=== PATIENT | male | born 1955 | race Caucasian/White ===

== ENCOUNTER 2019-03-19 11:01 | Emergency (ER) | payer SELFPAY ==
[~2019-03-19] VITALS: Ht 170.2 cm; Wt 63.5 kg
[2019-03-19] MEDS ORDERED: cefTRIAXone SOD 1,000 MG VL IM ONE (12:30)
[2019-03-19 13:52] VITALS: BP 118/68
== END 2019-03-19 15:48 | disposition left against medical advice (07) ==
LOC: ER 11:04
DX: J02.9 Acute pharyngitis, unspecified (principal); M54.2 Cervicalgia; Z53.21 Procedure and treatment not carried out due to patient leaving prior to being seen by health care provider
CPT/HCPCS: 70490

== ENCOUNTER 2019-05-18 21:16 | Inpatient (IN) | payer SELFPAY ==
[~2019-05-18] VITALS: Ht 162.6 cm; Wt 45.4 kg
[2019-05-18 22:18] LABS: Red Blood Cells 2.33 10^6/uL (4.5-5.90); Red Cell Distribution Width 15.6 % (11.8-14.3)
[2019-05-18 22:21] LABS: Hematocrit 22.7 % (41.0-53.0); Hemoglobin 7.3 g/dL (13.5-17.5); Mean Corpuscular Hemoglobin 31.3 pg (28.0-32.0); Mean Corpuscular Hgb Conc. 32.1 g/dL (32.0-36.0); Mean Corpuscular Volume 97.5 fL (80.0-100.0); Platelet Count (auto) 310 10^3/uL (140-450)
[2019-05-18] MEDS ORDERED: SODIUM CHLORIDE 0.9% 1,000 ML IV ONE ×2 (22:30)
[2019-05-18 22:31] LABS: White Blood Cell 36.9 10^3/uL (4.4-10.8)
[2019-05-18 22:33] LABS: Basophils % (manual) 0 (0.0-2.0); Blast Cells 0; Eosinophils % (manual) 0 (0-7); Metamyelocytes % 0; Myelocytes % 0; Promyelocytes % 0; Reactive Lymphocytes 0
[2019-05-18 22:39] LABS: Calcium 8.6 mg/dL (8.5-10.1); Potassium 4.4 mmol/L (3.5-5.1)
[2019-05-18 22:41] LABS: Bilirubin, Total 0.2 mg/dL (0.2-1.0); Total Protein 5.3 g/dL (6.4-8.2)
[2019-05-18 22:47] LABS: Band Neutrophils % (manual) 14; Lymphocytes % (manual) 3 (10.0-50.0); Monocytes % (manual) 3 (0-12)
[2019-05-18 23:17] LABS: Amylase 108 U/L (25-115); Blood Alcohol < 3.0 mg/dL (0-5); INR 1.68 (0.9-1.15); Magnesium 2.1 mg/dL (1.6-2.6); Partial Thromboplastin Time 24.8 sec (23.64-32.05)
[2019-05-18 23:27] LABS: Lactic Acid w/Reflex 3.5 mmol/L (0.4-2.0)
[2019-05-18] MEDS ORDERED: VANCOMYCIN 1GM/250ML 250 ML IV ONE (23:45)
[2019-05-18] MEDS ORDERED: PIPERACILLIN-TAZOB 3.375GM 100 ML IV ONE (23:45)
[2019-05-18 23:53] LABS: Urine Bacteria FEW /hpf (None Seen); Urine Blood Negative /uL (Negative); Urine Hyaline Cast MOD /lpf (0 - 2); Urine Mucus FEW (None Seen); Urine Specific Gravity 1.017 (1.001-1.035); Urine WBC 7 /hpf (0 - 3)
[2019-05-19 01:14] VITALS: BP 85/47
[2019-05-19 01:29] VITALS: BP 93/50
[2019-05-19] MEDS ORDERED: OCTREOTIDE ACETATE 500 MCG in SODIUM CHL 0.9% 99 ML IV SCH (02:45)
[2019-05-19] MEDS ORDERED: OCTREOTIDE ACETATE 100 MCG in SODIUM CHL 0.9% 50 ML IV ONE (02:45)
[2019-05-19] MEDS ORDERED: PANTOPRAZOLE 80 MG in SODIUM CHL 0.9% 60 ML IV SCH (02:45)
[2019-05-19] MEDS ORDERED: MORPHINE SULFATE 4 MG/ML SYR/VIAL IV PRN (02:45)
[2019-05-19] MEDS ORDERED: VANCOMYCIN PER PHARMACY 0 MG IV SCH (02:45)
[2019-05-19] MEDS ORDERED: SODIUM CHLORIDE 0.9% 1,000 ML IV SCH (02:45)
[2019-05-19] MEDS ORDERED: ONDANSETRON HCL 4 MG/2 ML VIAL IV PRN (02:45)
[2019-05-19] MEDS ORDERED: ALBUMIN 5% 250 ML IV ONE ×3 (03:00→08:15)
[2019-05-19] MEDS ORDERED: NITROGLYCERIN 0.4 MG SL TAB SL PRN (03:15)
[2019-05-19] MEDS ORDERED: MORPHINE SULF INJ 2 MG/ML SYRINGE 1ML IV PRN (03:15)
[2019-05-19] MEDS ORDERED: ETOMIDATE (2MG/ML) 20ML VIAL IV ONE (03:42)
[2019-05-19] MEDS ORDERED: SUCCINYLCHOLINE CHLORIDE 20 MG/ML 10ML VIAL IV ONE (03:42)
[2019-05-19] MEDS ORDERED: MIDAZOLAM DRIP 50 mg/50mL 50 ML IV SCH (03:47)
[2019-05-19] MEDS ORDERED: NOREPINEPHRINE 8 MG/250ML KIT 250 ML IV SCH (03:47)
[2019-05-19] MEDS ORDERED: NOREPINEPHRINE 8 MG/250ML KIT 250 ML IV ONE (03:53)
[2019-05-19] MEDS ORDERED: MIDAZOLAM DRIP 50 mg/50mL 50 ML IV ONE (03:56)
[2019-05-19] MEDS ORDERED: OCTREOTIDE ACETATE 500 MCG/ML VL ONE (04:16)
[2019-05-19] MEDS ORDERED: OCTREOTIDE ACETATE 100 MCG/ML VL ONE (04:16)
[2019-05-19] MEDS ORDERED: SODIUM BICARBONATE 8.4 % INJ 50ML VIAL IV ONE ×3 (04:45→06:15)
[2019-05-19] MEDS ORDERED: EPINEPHrine HCL 1 MG/10 ML SYRG ONE ×2 (05:41→05:49)
[2019-05-19] MEDS ORDERED: SODIUM BICARBONATE 50ML VIAL 100 ML in SOD CHL 0.45% 1,000 ML IV ONE (06:15)
[2019-05-19 06:25] VITALS: BP 77/38
[2019-05-19 06:28] VITALS: BP 74/30
[2019-05-19] MEDS ORDERED: SODIUM BICARBONATE 50ML VIAL 150 ML in SOD CHL 0.45% 1,000 ML IV ONE (06:30)
[2019-05-19] MEDS ORDERED: VASOPRESSIN 50 UNITS in D5W 5% 247.5 ML IV SCH (06:45)
[2019-05-19 07:08] LABS: Albumin 1.7 g/dL (3.4-5.0); Calcium 7.9 mg/dL (8.5-10.1)
[2019-05-19 07:11] LABS: BUN/Creatinine Ratio 57.8; Bilirubin, Total 0.1 mg/dL (0.2-1.0); Total Protein 2.8 g/dL (6.4-8.2)
[2019-05-19] MEDS ORDERED: PHENYLEPHRINE INJ 20 MG in SODIUM CHL 0.9% 250 ML IV SCH (07:15)
[2019-05-19 07:29] LABS: Hematocrit 8.9 % (41.0-53.0)
[2019-05-19 07:35] LABS: Hemoglobin 2.9 g/dL (13.5-17.5)
[2019-05-19 08:15] VITALS: BP 51/23
[2019-05-19 08:20] VITALS: BP 46/15
[2019-05-19 09:20] LABS: Hematocrit 11.5 % (41.0-53.0); Hemoglobin 3.6 g/dL (13.5-17.5)
[2019-05-19] MEDS ORDERED: CALCIUM CHLOR(10%) 100MG/ML 10ML SYRINGE IV ONE (11:52)
[2019-05-19] MEDS ORDERED: SODIUM BICARBONATE 8.4% INJ 50ML SYRINGE IV ONE (11:52)
[2019-05-19] MEDS ORDERED: DEXTROSE (50%) 50ML SYRG IV ONE (11:52)
[2019-05-19] MEDS ORDERED: EPINEPHrine HCL 1 MG/10 ML SYRG IV ONE (11:52)
[2019-05-19] MEDS ORDERED: PIPERACILLIN-TAZOB 3.375GM 100 ML IV SCH (12:00)
[2019-05-19 12:36] LABS: Alcohol, Urine < 3.0 mg/dL (0-5); Amphetamine Screen, Urine NEGATIVE (NEGATIVE); Barbiturate Scree,Urine NEGATIVE (NEGATIVE); Benzodiazephine Screen, Urine NEGATIVE (NEGATIVE); Cannabinoid Screen, Urine NEGATIVE (NEGATIVE); Cocaine Screen, Urine NEGATIVE (NEGATIVE); Opiate Scree,Urine NEGATIVE (NEGATIVE); Phencyclidine Screen, Urine NEGATIVE (NEGATIVE)
== END 2019-05-19 08:57 | disposition expired | DRG 871 ==
LOC: EDUNIT# 21:16 → EDBD 21:16 → ER 21:21 → TELE 21:22
PROVIDERS: ADMIT Nurse Practitioner; ATTEND Internal Medicine
PROC: 5A12012 Performance of Cardiac Output, Single, Manual (ICD-10-PCS; principal; 2019-05-18)
PROC: 5A1935Z Respiratory Ventilation, Less than 24 Consecutive Hours (ICD-10-PCS; 2019-05-19)
PROC: 0BH17EZ Insertion of Endotracheal Airway into Trachea, Via Natural or Artificial Opening (ICD-10-PCS; 2019-05-19)
DX: A41.9 Sepsis, unspecified organism (principal); K29.81 Duodenitis with bleeding; C34.90 Malignant neoplasm of unspecified part of unspecified bronchus or lung; E44.0 Moderate protein-calorie malnutrition; Z68.1 Body mass index [BMI] 19.9 or less, adult; R64 Cachexia; J93.9 Pneumothorax, unspecified; C32.1 Malignant neoplasm of supraglottis; I95.9 Hypotension, unspecified; I46.9 Cardiac arrest, cause unspecified; F17.210 Nicotine dependence, cigarettes, uncomplicated; K52.9 Noninfective gastroenteritis and colitis, unspecified; N18.3 Chronic kidney disease, stage 3 (moderate); Z85.118 Personal history of other malignant neoplasm of bronchus and lung
CPT/HCPCS: 36415; 36430; 36600; 71045; 74176; 80053; 80307; 80320; 81001; 82140; 82150; 82805; 82962; 83605; 83690; 83735; 83880; 84484; 85007; 85014; 85018; 85027; 85610; 85730; 86850; 86900; 86901; 86920; 87040; 87070; 87205; 93005; 94002; 94003; 96361; 96365; 96367; 96368; C9113; G0378; J0330; J2250; J2543; J7060